=== PATIENT | male | born 1955 | race Caucasian/White ===

== ENCOUNTER 2019-04-23 08:45 | Outpatient (CLI) | payer OTHER ==
[2019-04-23 11:27] LABS: Mean Corpuscular HGB CONC 34.5 g/dL (32.0-36.0); Mean Corpuscular Hemoglobin 32.9 pg (27.0-31.0); Mean Corpuscular Volume 95.5 fL (78.0-98.0); Mean Platelet Volume 8.6 fL (7.4-10.4); Platelet Count 185 thou/uL (130-400); RBC Distribution Width 11.4 % (11.5-14.5); Red Blood Cell (RBC) Count 4.56 mill/uL (4.70-6.10); White Blood Cell (WBC) Count 5.6 thou/uL (4.8-10.8)
[2019-04-23 11:32] LABS: Anion Gap 13 mmol/L (10-20); BUN (Urea Nitrogen) 20 mg/dL (8.4-25.7); Calc. Creatinine Clearance 0 mL/min (70-130); Calcium 9.5 mg/dL (7.8-10.44); Carbon Dioxide 27 mmol/L (23-31); Chloride 105 mmol/L (98-107); Estimated GFR-MDRD 66; Glucose 96 mg/dL (80-115); Potassium 4.2 mmol/L (3.5-5.1); Sodium 141 mmol/L (136-145)
== END 2019-04-23 08:46 | disposition home or self-care (01) ==
LOC: LABBT 08:45
PROVIDERS: ATTEND Neurological Surgery
DX: Z01.818 Encounter for other preprocedural examination (principal); M48.062 Spinal stenosis, lumbar region with neurogenic claudication
CPT/HCPCS: 80048; 85027; 93005; 93010

== ENCOUNTER 2019-04-29 06:29 | Observation (INO) | payer OTHER ==
[2019-04-29] MEDS ORDERED: Fentanyl 100 MCG/2 ML VIAL ONE ×4 (06:54→09:53)
[2019-04-29] MEDS ORDERED: Midazolam HCl 2 mg/2 ml Vial ONE (06:55)
[2019-04-29] MEDS ORDERED: Scopolamine 1.5 mg/72 hour Patch ONE (06:56)
[2019-04-29] MEDS ORDERED: Sodium Chloride 0.9% 0 ML ONE (06:57)
[2019-04-29] MEDS ORDERED: HYDROmorphone 0.5 MG/0.5 ML SYRINGE ONE (09:41)
[2019-04-29] MEDS ORDERED: Promethazine HCl 12.5 MG SUPP PR PRN (09:47)
[2019-04-29] MEDS ORDERED: Mag-Al 1200 mg/1200 mg/30 ML UDCUP PO PRN (09:47)
[2019-04-29] MEDS ORDERED: tiZANidine HCl 4 MG TAB PO PRN (09:47)
[2019-04-29] MEDS ORDERED: traMADol HCl 50 MG TAB PO PRN ×2 (09:47)
[2019-04-29] MEDS ORDERED: Ondansetron PF 4 MG/2 ML Vial IM PRN (09:47)
[2019-04-29] MEDS ORDERED: Promethazine HCl 25 MG/ML VIAL IM PRN (09:47)
[2019-04-29] MEDS ORDERED: diphenhydrAMINE 25 MG CAP PO PRN (09:47)
[2019-04-29] MEDS ORDERED: diphenhydrAMINE 50 MG/ML VIAL IVP PRN (09:47)
[2019-04-29] MEDS ORDERED: HYDROcodone/Acetaminophen 10/325 mg Tablet PO PRN (09:47)
[2019-04-29] MEDS ORDERED: Promethazine 25 MG TAB PO PRN (09:47)
[2019-04-29] MEDS ORDERED: Milk Of Magnesia 30 ML UDCUP PO PRN (09:47)
[2019-04-29] MEDS: HYDROcodone/Acetaminophen 10/325 mg Tablet PO PRN ×2 (11:04→16:46)
[2019-04-29 11:17] VITALS: BMI 26.4
[2019-04-29] MEDS ORDERED: Morphine 2 MG/ML SYRINGE SLOW IVP PRN (11:25)
[2019-04-29] MEDS ORDERED: Morphine 4 MG/ML VIAL SLOW IVP PRN (11:25)
[2019-04-29] MEDS: Sodium Chloride 0.9% 1,000 ML IV SCH (11:52)
--- NOTE | 2019-04-29 13:09 | OP ---
DATE OF PROCEDURE: 04/29/2019 EPIDEMIOLOGY INTERNSHIP: Stacey Petty PA-C PROCEDURE PERFORMED: L3 through L5 decompressive laminectomy. DESCRIPTION OF PROCEDURE: The patient was brought to the operating room and intubated. He was rolled in a prone position on gel-filled chest rolls. An incision was made exposing L3 through L5 and the level was confirmed by x-ray. We performed complete L5, complete L4, and inferior L3 laminectomies, completely decompressed the neural elements. The wound was extensively irrigated. MAC hemostasis was secured. Vancomycin powder was applied and the wound was closed in anatomic layers over drain. Job ID: [id number]
[2019-04-29] MEDS: CEFAZOLIN 2 GM in Premix Bag 1 BAG IVPB SCH ×2 (14:06→21:46)
[2019-04-29] MEDS ORDERED: PROPOFOL 200 MG/20 ML VIAL ONE (14:39)
[2019-04-29] MEDS ORDERED: Glycopyrrolate 0.2 MG/ML 5 ML SYRINGE ONE (14:39)
[2019-04-29] MEDS ORDERED: Ondansetron PF 4 MG/2 ML Vial ONE (14:39)
[2019-04-29] MEDS ORDERED: Rocuronium Bromide 10 MG/ML (10ML VIAL) ONE (14:39)
[2019-04-29] MEDS ORDERED: PHENYLEPHRINE-NS 100 MCG/ML 10 ML SYRINGE ONE (14:39)
[2019-04-29] MEDS ORDERED: Dexamethasone 20 MG/5 ML VIAL ONE (14:39)
[2019-04-29] MEDS ORDERED: Zolpidem Tartrate 5 MG TAB PO SCH (21:00)
[2019-04-30] MEDS: Sodium Chloride 0.9% 1,000 ML IV SCH (01:56)
[2019-04-30] MEDS: CEFAZOLIN 2 GM in Premix Bag 1 BAG IVPB SCH (05:27)
[2019-04-30 07:56] VITALS: BP 156/76; TEMP 99.6
[2019-04-30] MEDS: HYDROcodone/Acetaminophen 10/325 mg Tablet PO PRN (08:13)
[2019-04-30] MEDS ORDERED: FLU VACC QS2019-20(6MOS UP)/PF 60 MCG/0.5 ML SYRINGE IM ONE (09:00)
[2019-04-30] MEDS ORDERED: Multivit, Therapeutic 1 TAB PO SCH (09:00)
[2019-04-30] MEDS ORDERED: Loratadine/Pseudoephedrine 10/240 mg Tablet PO SCH (09:00)
[2019-04-30] MEDS ORDERED: Calcium Carbonate 500 MG TAB PO SCH (09:00)
--- NOTE | 2019-04-30 11:51 | DIS ---
DATE OF ADMISSION: 04/29/2019 DATE OF DISCHARGE: 04/30/2019 The patient is a 63-year-old male, who was recently evaluated in our office for progressive neurogenic claudication and found to have lumbar stenosis from L3 through L5. The patient underwent L3 through L5 laminectomy on 04/29/2019. DAYAN drain was placed intraoperatively. He was transitioned to the Med/Surg floor, where his pain was well controlled with p.o. medications. He was tolerating regular diet, and he is voiding appropriately. He has been ambulating easily up and down the hallways. His DAYAN drain output has trended downward and had only 45 mL out overnight. We will plan to remove the DAYAN drain and dismiss the patient to home. I have discussed home care precautions. We will follow up with the patient in 2 weeks. He was provided with prescriptions for Apex and Zanaflex. Job ID: [id number]
== END 2019-04-30 10:07 | disposition home or self-care (01) ==
LOC: SDC 06:29 → SURG B 09:40
PROVIDERS: ADMIT Neurological Surgery; ATTEND Neurological Surgery
PROC: 01NB0ZZ Release Lumbar Nerve, Open Approach (ICD-10-PCS; principal; 2019-04-29)
DX: M48.062 Spinal stenosis, lumbar region with neurogenic claudication (principal); Z79.899 Other long term (current) drug therapy; Z88.2 Allergy status to sulfonamides
CPT/HCPCS: 76000; 96365; 96366; 96376; G0378; J0690; J1100; J1170; J2250; J2405; J2704; J3010; J3370